=== PATIENT | male | born 1955 | race Hispanic/Latino ===

== ENCOUNTER 2018-11-07 17:06 | Inpatient (IN) | payer OTHER | END 2018-11-15 18:56 | disposition home or self-care (01) | LOC: EDH 17:06 → 2CV 11-11 10:40 → 2BH 11-12 13:30 → 2DH 11-09 13:21 → 2CV 11-11 14:26 → 2AH 11-13 15:05 → EDHIP 18:30 → 4AH 23:54 | PROC: 021009W Bypass Coronary Artery, One Artery from Aorta with Autologous Venous Tissue, Open Approach (ICD-10-PCS; principal; 2018-11-11 16:36) | PROC: 02100Z9 Bypass Coronary Artery, One Artery from Left Internal Mammary, Open Approach (ICD-10-PCS; 2018-11-11 16:36) | DX: I21.4 Non-ST elevation (NSTEMI) myocardial infarction (principal); I16.1 Hypertensive emergency; R07.9 Chest pain, unspecified; R74.8 Abnormal levels of other serum enzymes; E11.9 Type 2 diabetes mellitus without complications; I10 Essential (primary) hypertension ==

== ENCOUNTER → 2019-09-10 | Outpatient (CLI) | payer OTHER ==
[~2019-09-10] MED LIST: ASPI-1197 PO; ATOR10 PO; FURO20TA6 PO; METO25 PO; PANT40TA PO
== END | disposition home or self-care (01) ==
LOC: SHCH 08:32
PROVIDERS: ATTEND Internal Medicine Cardiovascular Disease
DX: I10 Essential (primary) hypertension (principal)
CPT/HCPCS: 93922